=== PATIENT | male | born 1930 | race Caucasian/White ===

== ENCOUNTER 2016-09-22 14:43 | Emergency (ER) | payer MEDICARE, OTHER ==
--- NOTE | 2016-09-22 15:47 | ED ---
General Adult HPI - General Chief complaint: Urogenital Stated complaint: Blood in Urine Time Seen by Provider: 09/22/16 15:34 Source: patient, family, RN notes reviewed Mode of arrival: wheelchair Limitations: no limitations - History of Present Illness Initial comments: Patient is a pleasant 86-year-old male presenting to the emergency Department with hematuria. Onset was this morning. Patient has had 2 or 3 episodes. Minimal discomfort with urination however patient has a pressure type sensation. No back pain. No abdominal pain. No fevers. Patient did have similar symptoms around a month ago and diagnosed with urinary tract infection. Chart review reveals this was actually a few months ago. Patient did have follow-up with urology and prescribed Keflex last week. Concern for kidney infection. - Related Data Home Medications Medication Instructions Recorded Confirmed Esomeprazole Magnesium [NexIUM] 40 mg PO HS 07/25/15 09/22/16 Insulin Glargine,Hum.rec.anlog 25 unit SQ HS 07/25/15 09/22/16 [Lantus Solostar] Aspirin EC [Ecotrin Low Dose] 81 mg PO DAILY 06/24/16 09/22/16 Carvedilol [Coreg] 6.25 mg PO DAILY 06/24/16 09/22/16 Magnesium Oxide [Mag-Ox] 250 mg PO DAILY 06/24/16 09/22/16 Ferrous Sulfate [Feosol] 325 mg PO DAILY 07/22/16 09/22/16 Tamsulosin HCl [Flomax] 0.4 mg PO DAILY 07/22/16 09/22/16 Cephalexin [Keflex] 500 mg PO TID 09/22/16 09/22/16 Previous Rx's Medication Instructions Recorded Clopidogrel [Plavix] 75 mg PO DAILY #30 tab 01/13/16 Nitroglycerin Sl Tabs [Nitrostat] 0.4 mg SUBLINGUAL Q5M PRN #0 tab 01/13/16 Ciprofloxacin HCl [Cipro] 500 mg PO Q12HR #20 tablet 09/22/16 Allergies Allergy/AdvReac Type Severity Reaction Status Date / Time codeine AdvReac Severe Nausea & Verified 09/22/16 16:18 Vomiting Jjxmymd-[id number]-Gya Reductase AdvReac Severe Chest Pain Verified 09/22/16 16:18 Inhibitor Review of Systems ROS Statement: Those systems with pertinent positive or pertinent negative responses have been documented in the HPI. ROS Other: All systems not noted in ROS Statement are negative. Constitutional: Denies: fever Eyes: Denies: eye pain ENT: Denies: ear pain Respiratory: Denies: cough Cardiovascular: Denies: chest pain Endocrine: Denies: fatigue Gastrointestinal: Denies: abdominal pain, nausea, vomiting Genitourinary: Reports: urgency, dysuria (Mild), hematuria Musculoskeletal: Denies: back pain Skin: Denies: rash Neurological: Denies: weakness Past Medical History Past Medical History: Atrial Fibrillation, Coronary Artery Disease (CAD), Cancer , Chest Pain / Angina, Diabetes Mellitus, GI Bleed, Hypertension, Osteoarthritis (OA) Additional Past Medical History / Comment(s): past gi bleed r/t coumadin, gout( once), skin cancer History of Any Multi-Drug Resistant Organisms: None Reported Past Surgical History: Appendectomy, Cardiac Valve Replacement, Coronary Bypass/ CABG, Hernia Repair Additional Past Surgical History / Comment(s): cabg (5 vessle 18 years ago) and valve replacement 2 years ago, cataracts, laser sx rt eye(had some bleeding behind eye). Past Anesthesia/Blood Transfusion Reactions: No Reported Reaction Past Psychological History: No Psychological Hx Reported Additional Psychological History / Comment(s): pt lives at home with his ( he is care provider for his ) family lives next door and helps out. pt is independant. 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 Smoking Status: Former smoker Past Alcohol Use History: None Reported Additional Past Alcohol Use History / Comment(s): quit smoking 40 years ago and enjoys an occ glass of wine. Past Drug Use History: None Reported - Past Family History Mother Family Medical History: Dementia Father Additional Family Medical History / Comment(s): from train accident. many of pts aunts and uncles lived into [address] [place] General Exam Limitations: no limitations General appearance: alert, in no apparent distress Head exam: Present: atraumatic Eye exam: Present: normal appearance ENT exam: Present: normal oropharynx Neck exam: Present: normal inspection Respiratory exam: Present: normal lung sounds bilaterally Cardiovascular Exam: Present: regular rate, normal rhythm, systolic murmur GI/Abdominal exam: Present: soft. Absent: distended, tenderness, guarding, rebound, rigid, pulsatile mass Extremities exam: Present: normal inspection Back exam: Present: normal inspection. Absent: tenderness, CVA tenderness (R), CVA tenderness (L) Neurological exam: Present: alert Psychiatric exam: Present: normal affect, normal mood Skin exam: Absent: rash Course Vital Signs 09/22/16 14:52 Temperature 98.0 F Pulse Rate 58 L Respiratory 20 Rate Blood Pressure 199/79 O2 Sat by Pulse 99 Oximetry Medical Decision Making - Medical Decision Making Patient reevaluated and resting comfortably in bed. Patient has urinated with improvement of hematuria. Patient updated on results and need for follow-up. Antibiotics will be changed for possible urinary tract infection. - Lab Data Result diagrams: 09/22/16 16:24 09/22/16 16:24 Lab Results 09/22/16 09/22/16 09/22/16 Range/Units 15:47 16:24 16:24 WBC 6.0 (3.8-10.6) k/uL RBC 3.46 L (4.30-5.90) m/uL Hgb 11.0 L (13.0-17.5) gm/dL Hct 32.1 L (39.0-53.0) % MCV 92.8 (80.0-100.0) fL MCH 31.8 (25.0-35.0) pg MCHC 34.3 (31.0-37.0) g/dL RDW 13.6 (11.5-15.5) % Plt Count 195 (150-450) k/uL Neutrophils % 68 % Lymphocytes % 19 % Monocytes % 8 % Eosinophils % 2 % Basophils % 1 % Neutrophils # 4.1 (1.3-7.7) k/uL Lymphocytes # 1.2 (1.0-4.8) k/uL Monocytes # 0.5 (0-1.0) k/uL Eosinophils # 0.1 (0-0.7) k/uL Basophils # 0.1 (0-0.2) k/uL PT (9.0-12.0) sec INR (<1.1) APTT (22.0-30.0) sec Sodium 136 L (137-145) mmol/L Potassium 4.4 (3.5-5.1) mmol/L Chloride 98 (98-107) mmol/L Carbon Dioxide 28 (22-30) mmol/L Anion Gap 10 mmol/L BUN 18 (9-20) mg/dL Creatinine 1.31 H (0.66-1.25) mg/dL Est GFR (MDRD) Af Amer >60 (>60 ml/min/1.73 sqM) Est GFR (MDRD) Non-Af 52 (>60 ml/min/1.73 sqM) Glucose 156 H (74-99) mg/dL Calcium 8.8 (8.4-10.2) mg/dL Total Bilirubin 0.6 (0.2-1.3) mg/dL AST 21 (17-59) U/L ALT 25 (21-72) U/L Alkaline Phosphatase 55 (38-126) U/L Total Protein 7.5 (6.3-8.2) g/dL Albumin 4.2 (3.5-5.0) g/dL Urine Color Light Red Urine Appearance Clear (Clear) Urine pH 7.0 (5.0-8.0) Ur Specific [place] 1.009 (1.001-1.035) Urine Protein 1+ H (Negative) Urine Glucose (UA) Negative (Negative) Urine Ketones Negative (Negative) Urine Blood Large H (Negative) Urine Nitrate Negative (Negative) Urine Bilirubin Negative (Negative) Urine Urobilinogen <2.0 (<2.0) mg/dL Ur Leukocyte Esterase Negative (Negative) Urine RBC >182 H (0-5) /hpf 09/22/16 Range/Units 16:24 WBC (3.8-10.6) k/uL RBC (4.30-5.90) m/uL Hgb (13.0-17.5) gm/dL Hct (39.0-53.0) % MCV (80.0-100.0) fL MCH (25.0-35.0) pg MCHC (31.0-37.0) g/dL RDW (11.5-15.5) % Plt Count (150-450) k/uL Neutrophils % % Lymphocytes % % Monocytes % % Eosinophils % % Basophils % % Neutrophils # (1.3-7.7) k/uL Lymphocytes # (1.0-4.8) k/uL Monocytes # (0-1.0) k/uL Eosinophils # (0-0.7) k/uL Basophils # (0-0.2) k/uL PT 10.6 (9.0-12.0) sec INR 1.1 (<1.1) APTT 23.8 (22.0-30.0) sec Sodium (137-145) mmol/L Potassium (3.5-5.1) mmol/L Chloride (98-107) mmol/L Carbon Dioxide (22-30) mmol/L Anion Gap mmol/L BUN (9-20) mg/dL Creatinine (0.66-1.25) mg/dL Est GFR (MDRD) Af Amer (>60 ml/min/1.73 sqM) Est GFR (MDRD) Non-Af (>60 ml/min/1.73 sqM) Glucose (74-99) mg/dL Calcium (8.4-10.2) mg/dL Total Bilirubin (0.2-1.3) mg/dL AST (17-59) U/L ALT (21-72) U/L Alkaline Phosphatase (38-126) U/L Total Protein (6.3-8.2) g/dL Albumin (3.5-5.0) g/dL Urine Color Urine Appearance (Clear) Urine pH (5.0-8.0) Ur Specific [place] (1.001-1.035) Urine Protein (Negative) Urine Glucose (UA) (Negative) Urine Ketones (Negative) Urine Blood (Negative) Urine Nitrate (Negative) Urine Bilirubin (Negative) Urine Urobilinogen (<2.0) mg/dL Ur Leukocyte Esterase (Negative) Urine RBC (0-5) /hpf - Radiology Data Radiology results: report reviewed (Computed tomography scan of abdomen pelvis shows no acute process), image reviewed (KUB shows no acute process) Disposition Clinical Impression: Hematuria Disposition: HOME SELF-CARE Condition: Stable Instructions: Hematuria (ED) Additional Instructions: Please follow-up with your urologist this week. Also primary care physician. Return for pain, fevers, weakness, worsening symptoms or other concerns. Prescriptions: Ciprofloxacin HCl [Cipro] 500 mg PO Q12HR #20 tablet Referrals: Daniele Banks MD [Primary Care Provider] - 1-2 days Cruz Hunter MD [STAFF PHYSICIAN] - 1-2 days
--- NOTE | 2016-09-22 16:01 | XR ---
EXAMINATION TYPE: XR KUB portable DATE OF EXAM: 09/22/2016 3:56 PM COMPARISON: NONE HISTORY: Abdominal pain and hematuria TECHNIQUE: 1 views submitted FINDINGS: Extensive vascular calcifications are noted. Calcifications in pelvis are nonspecific. No s uspicious calcifications are seen overlying the kidneys. There is extensive retained fecal debris whi ch limits its evaluation. Bowel gas pattern nonspecific with no diagnostic evidence of obstruction. IMPRESSION: 1. Nonspecific abdomen. No definite suspicious calcifications. If warranted clinically consider CT sc an.
[2016-09-22 16:08] LABS: Appearance,Urine Clear (Clear); Bilirubin,Urine Negative (Negative); Glucose,Urine (UA) Negative (Negative); Ketones,Urine Negative (Negative); Leukocyte Esterase,Urine Negative (Negative); Nitrite,Urine Negative (Negative); Particle Count 3261; Protein,Urine 1+ (Negative); RBC,Urine >182 /hpf (0-5); Specific Gravity,Urine 1.009 (1.001-1.035); UA Billing (MACRO vs. MICRO) MICRO; Urobilinogen,Urine <2.0 mg/dL (<2.0)
[2016-09-22 16:33] LABS: Basophils # (A) 0.1 k/uL (0-0.2); Basophils % (A) 1 %; CH 32.1; CHCM 34.8; Eosinophils # (A) 0.1 k/uL (0-0.7); Eosinophils % (A) 2 %; HCT 32.1 % (39.0-53.0); HDW 2.45; Luc # (Auto) 0.15; Luc % (Auto) 3; Lymphocytes # (A) 1.2 k/uL (1.0-4.8); Lymphocytes % (A) 19 %; MCH 31.8 pg (25.0-35.0); MCHC 34.3 g/dL (31.0-37.0); MCV 92.8 fL (80.0-100.0); Mean Platelet Volume 8.1; Monocytes # (A) 0.5 k/uL (0-1.0); Monocytes % (A) 8 %; Neutrophils # (A) 4.1 k/uL (1.3-7.7); Neutrophils % (A) 68 %; RBC 3.46 m/uL (4.30-5.90); RDW 13.6 % (11.5-15.5); WBC (Perox) 6.48
[2016-09-22 16:43] LABS: ALT 25 U/L (21-72); AST 21 U/L (17-59); Alkaline Phosphatase 55 U/L (38-126); Anion Gap 10 mmol/L; Blood Urea Nitrogen 18 mg/dL (9-20); Calcium 8.8 mg/dL (8.4-10.2); Carbon Dioxide 28 mmol/L (22-30); Chloride 98 mmol/L (98-107); Glucose 156 mg/dL (74-99); Non-African American GFR(MDRD) 52 (>60 ml/min/1.73 sqM); Potassium 4.4 mmol/L (3.5-5.1); Sodium 136 mmol/L (137-145); Total Bilirubin 0.6 mg/dL (0.2-1.3); Total Protein 7.5 g/dL (6.3-8.2)
[2016-09-22 16:48] LABS: INR 1.1 (<1.1); Partial Thromboplastin Time 23.8 sec (22.0-30.0); Prothrombin Time 10.6 sec (9.0-12.0)
--- NOTE | 2016-09-22 18:53 | CT ---
EXAMINATION TYPE: CT abdomen pelvis wo con DATE OF EXAM: 09/22/2016 6:32 PM COMPARISON: 06/24/2016 HISTORY: Pt states of hematuria. CT DLP: 417.5 mGycm Automated exposure control for dose reduction was used. TECHNIQUE: Helical acquisition of images was performed from the lung bases through the pelvis. FINDINGS: Lung bases are clear of consolidation. There is no pleural effusion. There is a hiatal hernia. Liver shows no focal defect. Gallbladder appears normal. Bile ducts are not dilated. There is no sign of a pancreatic mass. Spleen appears normal. There is atherosclerotic vascular calcification. There is no adrenal mass. Kidneys have normal size and contour. There is no hydronephrosis. Ureters are not dilated. There is no retroperitoneal adenopathy. There is no ascites. Bladder distends smoothly. The re is no free fluid in the pelvis. There is retained fecal material throughout the colon. Appendix is not seen. There is no sign of appendicitis. I see no bony destructive process. There is 15% depressi on of the superior endplate of L1 vertebra that is is old. IMPRESSION: ATHEROSCLEROTIC VASCULAR DISEASE. NO SIGN OF ACUTE ABDOMEN AND PELVIS. CONSTIPATION. NO ADVERSE PHILLIPS E COMPARED TO OLD EXAM. STABLE 2 CM DENSITY IN THE RIGHT INGUINAL REGION IS PROBABLY AN ENLARGED LYMP H NODE.
[2016-09-22 19:34] VITALS: BP 150/86; PULSE 60; RESP 16; TEMP 97.3
== END 2016-09-22 19:33 | disposition home or self-care (01) ==
LOC: EC 14:43
DX: R31.9 Hematuria, unspecified (principal); R30.0 Dysuria; I48.91 Unspecified atrial fibrillation; I25.10 Atherosclerotic heart disease of native coronary artery without angina pectoris; E11.9 Type 2 diabetes mellitus without complications; I10 Essential (primary) hypertension; M19.90 Unspecified osteoarthritis, unspecified site; Z95.2 Presence of prosthetic heart valve; Z87.891 Personal history of nicotine dependence; Z95.1 Presence of aortocoronary bypass graft; Z87.440 Personal history of urinary (tract) infections; Z79.4 Long term (current) use of insulin; Z79.899 Other long term (current) drug therapy; Z79.82 Long term (current) use of aspirin; Z79.02 Long term (current) use of antithrombotics/antiplatelets; Z88.8 Allergy status to other drugs, medicaments and biological substances; Z88.5 Allergy status to narcotic agent
CPT/HCPCS: 36415; 51798; 74000; 74176; 80053; 81001; 85025; 85610; 85730; 87086; 99284

== ENCOUNTER 2017-05-15 08:09 | Emergency (ER) | payer MEDICARE, OTHER ==
[2017-05-15] MEDS ORDERED: SODIUM CHLORIDE 0.9% 500 ML IV STA (08:31)
[2017-05-15 08:51] LABS: Basophils # (A) 0.1 k/uL (0-0.2); Basophils % (A) 1 %; CH 32.7; CHCM 34.4; Eosinophils # (A) 0.2 k/uL (0-0.7); Eosinophils % (A) 3 %; HDW 2.49; HGB 11.7 gm/dL (13.0-17.5); Luc % (Auto) 2; Lymphocytes % (A) 17 %; MCH 31.9 pg (25.0-35.0); MCHC 33.5 g/dL (31.0-37.0); MCV 95.4 fL (80.0-100.0); Mean Platelet Volume 7.8; Monocytes # (A) 0.6 k/uL (0-1.0); Monocytes % (A) 10 %; Neutrophils # (A) 3.9 k/uL (1.3-7.7); Neutrophils % (A) 67 %; RBC 3.67 m/uL (4.30-5.90); RDW 12.7 % (11.5-15.5); WBC 5.8 k/uL (3.8-10.6); WBC (Perox) 5.79
--- NOTE | 2017-05-15 08:57 | XR ---
EXAMINATION TYPE: XR chest 2V DATE OF EXAM: 05/15/2017 HISTORY: dysrhythmia. REFERENCE: Previous study dated 07/22/2016. FINDINGS: There has been a midline sternotomy. There is some platelike atelectasis at the left lung b ase. The lungs are otherwise clear. Heart size is upper limits of normal. Pleural spaces are clear. T here is hypertrophic spondylosis in the dorsal spine. IMPRESSION: 1. BORDERLINE CARDIOMEGALY. 2. PLATELIKE ATELECTASIS, LEFT LUNG BASE.
[2017-05-15 08:59] LABS: INR 1.1 (<1.2); Prothrombin Time 11.1 sec (9.0-12.0)
[2017-05-15 09:00] LABS: ALT 27 U/L (21-72); AST 21 U/L (17-59); Alkaline Phosphatase 56 U/L (38-126); Anion Gap 10 mmol/L; Blood Urea Nitrogen 17 mg/dL (9-20); Calcium 8.7 mg/dL (8.4-10.2); Carbon Dioxide 24 mmol/L (22-30); Chloride 103 mmol/L (98-107); Glucose 64 mg/dL (74-99); Non-African American GFR(MDRD) 55 (>60 ml/min/1.73 sqM); Potassium 4.5 mmol/L (3.5-5.1); Sodium 137 mmol/L (137-145); Total Bilirubin 0.5 mg/dL (0.2-1.3); Total Protein 6.9 g/dL (6.3-8.2)
--- NOTE | 2017-05-15 09:04 | ED ---
General Adult HPI - General Chief complaint: Weakness Stated complaint: weakness Time Seen by Provider: 05/15/17 08:15 Source: patient, RN notes reviewed Mode of arrival: wheelchair Limitations: no limitations - History of Present Illness Initial comments: This is an 86-year-old male who presents emergency department with past medical history significant for atrial fibrillation. Patient states she woke up this morning felt his heart racing felt a little bit weak mildly short of breath. Patient states he takes medicines went back to bed when he got up he no longer had any the racing heart thought he might be slightly weak but he wanted to come in to get checked out. Patient at no time had any chest pain. Patient states currently he feels back to his baseline. Patient states he has not had any recent fever chills or cough. Patient denies any abdominal pain patient denies nausea vomiting diarrhea. Patient denies any diaphoretic episodes. Patient denies headache patient denies numbness weakness. Patient denies any leg swelling or calf pain. Patient denies being lightheaded or dizzy. - Related Data Home Medications Medication Instructions Recorded Confirmed Esomeprazole Magnesium [NexIUM] 40 mg PO HS 07/25/15 09/22/16 Insulin Glargine,Hum.rec.anlog 25 unit SQ HS 07/25/15 09/22/16 [Lantus Solostar] Aspirin EC [Ecotrin Low Dose] 81 mg PO DAILY 06/24/16 09/22/16 Carvedilol [Coreg] 6.25 mg PO DAILY 06/24/16 09/22/16 Magnesium Oxide [Mag-Ox] 250 mg PO DAILY 06/24/16 09/22/16 Ferrous Sulfate [Feosol] 325 mg PO DAILY 07/22/16 09/22/16 Tamsulosin HCl [Flomax] 0.4 mg PO DAILY 07/22/16 09/22/16 Cephalexin [Keflex] 500 mg PO TID 09/22/16 09/22/16 Previous Rx's Medication Instructions Recorded Clopidogrel [Plavix] 75 mg PO DAILY #30 tab 01/13/16 Nitroglycerin Sl Tabs [Nitrostat] 0.4 mg SUBLINGUAL Q5M PRN #0 tab 01/13/16 Ciprofloxacin HCl [Cipro] 500 mg PO Q12HR #20 tablet 09/22/16 Allergies Allergy/AdvReac Type Severity Reaction Status Date / Time codeine AdvReac Severe Nausea & Verified 05/15/17 08:15 Vomiting Bxkujqi-Zsj-Bzg Reductase AdvReac Severe Chest Pain Verified 05/15/17 08:15 Inhibitor Review of Systems ROS Statement: Those systems with pertinent positive or pertinent negative responses have been documented in the HPI. ROS Other: All systems not noted in ROS Statement are negative. Past Medical History Past Medical History: Atrial Fibrillation, Coronary Artery Disease (CAD), Cancer , Chest Pain / Angina, Diabetes Mellitus, GI Bleed, Hypertension, Osteoarthritis (OA) Additional Past Medical History / Comment(s): past gi bleed r/t coumadin, gout( once), skin cancer History of Any Multi-Drug Resistant Organisms: None Reported Past Surgical History: Appendectomy, Cardiac Valve Replacement, Coronary Bypass/ CABG, Hernia Repair Additional Past Surgical History / Comment(s): cabg (5 vessle 18 years ago) and valve replacement 2 years ago, cataracts, laser sx rt eye(had some bleeding behind eye). Past Anesthesia/Blood Transfusion Reactions: No Reported Reaction Past Psychological History: No Psychological Hx Reported Smoking Status: Former smoker Past Alcohol Use History: None Reported Past Drug Use History: None Reported - Past Family History Mother Family Medical History: Dementia Father Additional Family Medical History / Comment(s): from train accident. many of pts aunts and uncles lived into [address] [facility] General Exam - General Exam Comments Initial Comments: GENERAL: Patient is well-developed and well-nourished. Patient is nontoxic and well- hydrated and is in no acute distress. ENT: Neck is soft and supple. No significant lymphadenopathy is noted. Oropharynx is clear. Moist mucous membranes. Neck has full range of motion without eliciting any pain. EYES: The sclera were anicteric and conjunctiva were pink and moist. Extraocular movements were intact and pupils were equal round and reactive to light. Eyelids were unremarkable. PULMONARY: Unlabored respirations. Good breath sounds bilaterally. No audible rales rhonchi or wheezing was noted. CARDIOVASCULAR: Irregular heartbeat ABDOMEN: Soft and nontender with normal bowel sounds. No palpable organomegaly was noted. There is no palpable pulsatile mass. SKIN: Skin is clear with no lesions or rashes and otherwise unremarkable. NEUROLOGIC: Patient is alert and oriented x3. Cranial nerves II through XII are grossly intact. Motor and sensory are also intact. Normal speech, volume and content. Symmetrical smile. MUSCULOSKELETAL: Normal extremities with adequate strength and full range of motion. No lower extremity swelling or edema. No calf tenderness. LYMPHATICS: No significant lymphadenopathy is noted PSYCHIATRIC: Normal psychiatric evaluation. Normal interpersonal interactions appears functionally intact in deals appropriately with others. No signs of depression. No signs of anxiety. 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 Patient's EKG shows no ST segment elevation or depression. I compared this EKG to an old EKG there are no acute changes noted. Chest x-ray shows no acute abnormality. I went back in the room to reevaluate the patient and patient states he was asymptomatic and wanted to be discharged home to go home and take care of his . Patient agreed to follow up with cardiology. - Lab Data Result diagrams: 05/15/17 08:34 05/15/17 08:34 Lab Results 05/15/17 05/15/17 05/15/17 Range/Units 08:34 08:34 08:34 WBC 5.8 (3.8-10.6) k/uL RBC 3.67 L (4.30-5.90) m/uL Hgb 11.7 L (13.0-17.5) gm/dL Hct 35.0 L (39.0-53.0) % MCV 95.4 (80.0-100.0) fL MCH 31.9 (25.0-35.0) pg MCHC 33.5 (31.0-37.0) g/dL RDW 12.7 (11.5-15.5) % Plt Count 210 (150-450) k/uL Neutrophils % 67 % Lymphocytes % 17 % Monocytes % 10 % Eosinophils % 3 % Basophils % 1 % Neutrophils # 3.9 (1.3-7.7) k/uL Lymphocytes # 1.0 (1.0-4.8) k/uL Monocytes # 0.6 (0-1.0) k/uL Eosinophils # 0.2 (0-0.7) k/uL Basophils # 0.1 (0-0.2) k/uL PT (9.0-12.0) sec INR (<1.2) APTT (22.0-30.0) sec Sodium 137 (137-145) mmol/L Potassium 4.5 (3.5-5.1) mmol/L Chloride 103 (98-107) mmol/L Carbon Dioxide 24 (22-30) mmol/L Anion Gap 10 mmol/L BUN 17 (9-20) mg/dL Creatinine 1.25 (0.66-1.25) mg/dL Est GFR (MDRD) Af Amer >60 (>60 ml/min/1.73 sqM) Est GFR (MDRD) Non-Af 55 (>60 ml/min/1.73 sqM) Glucose 64 L (74-99) mg/dL Calcium 8.7 (8.4-10.2) mg/dL Magnesium 2.0 (1.6-2.3) mg/dL Total Bilirubin 0.5 (0.2-1.3) mg/dL AST 21 (17-59) U/L ALT 27 (21-72) U/L Alkaline Phosphatase 56 (38-126) U/L Total Creatine Kinase 149 (55-170) U/L CK-MB (CK-2) 1.8 (0.0-2.4) ng/mL CK-MB (CK-2) Rel Index 1.2 Troponin I <0.012 (0.000-0.034) ng/mL Total Protein 6.9 (6.3-8.2) g/dL Albumin 3.9 (3.5-5.0) g/dL 05/15/17 Range/Units 08:34 WBC (3.8-10.6) k/uL RBC (4.30-5.90) m/uL Hgb (13.0-17.5) gm/dL Hct (39.0-53.0) % MCV (80.0-100.0) fL MCH (25.0-35.0) pg MCHC (31.0-37.0) g/dL RDW (11.5-15.5) % Plt Count (150-450) k/uL Neutrophils % % Lymphocytes % % Monocytes % % Eosinophils % % Basophils % % Neutrophils # (1.3-7.7) k/uL Lymphocytes # (1.0-4.8) k/uL Monocytes # (0-1.0) k/uL Eosinophils # (0-0.7) k/uL Basophils # (0-0.2) k/uL PT 11.1 (9.0-12.0) sec INR 1.1 (<1.2) APTT 24.0 (22.0-30.0) sec Sodium (137-145) mmol/L Potassium (3.5-5.1) mmol/L Chloride (98-107) mmol/L Carbon Dioxide (22-30) mmol/L Anion Gap mmol/L BUN (9-20) mg/dL Creatinine (0.66-1.25) mg/dL Est GFR (MDRD) Af Amer (>60 ml/min/1.73 sqM) Est GFR (MDRD) Non-Af (>60 ml/min/1.73 sqM) Glucose (74-99) mg/dL Calcium (8.4-10.2) mg/dL Magnesium (1.6-2.3) mg/dL Total Bilirubin (0.2-1.3) mg/dL AST (17-59) U/L ALT (21-72) U/L Alkaline Phosphatase (38-126) U/L Total Creatine Kinase (55-170) U/L CK-MB (CK-2) (0.0-2.4) ng/mL CK-MB (CK-2) Rel Index Troponin I (0.000-0.034) ng/mL Total Protein (6.3-8.2) g/dL Albumin (3.5-5.0) g/dL Disposition Clinical Impression: Palpitations, History of atrial fibrillation Disposition: HOME SELF-CARE Instructions: Palpitations (ED) Additional Instructions: Patient should follow up with cardiology or Dr. Banks Referrals: Daniele Banks MD [Primary Care Provider] - 1-2 days Time of Disposition: 09:36
[2017-05-15 09:13] LABS: Creatine Kinase 149 U/L (55-170)
[2017-05-15 09:19] VITALS: RESP 18
[2017-05-15 09:25] LABS: Creatine Kinase MB 1.8 ng/mL (0.0-2.4); Troponin I <0.012 ng/mL (0.000-0.034)
[2017-05-15 10:19] VITALS: BP 170/78; PULSE 59; TEMP 98.2
== END 2017-05-15 10:19 | disposition home or self-care (01) ==
LOC: EC 08:09
DX: R00.2 Palpitations (principal); I48.91 Unspecified atrial fibrillation; I25.10 Atherosclerotic heart disease of native coronary artery without angina pectoris; E11.9 Type 2 diabetes mellitus without complications; I10 Essential (primary) hypertension; M19.90 Unspecified osteoarthritis, unspecified site; Z87.891 Personal history of nicotine dependence; Z85.828 Personal history of other malignant neoplasm of skin; Z95.1 Presence of aortocoronary bypass graft; Z88.5 Allergy status to narcotic agent; Z88.8 Allergy status to other drugs, medicaments and biological substances; Z79.4 Long term (current) use of insulin; Z79.899 Other long term (current) drug therapy
CPT/HCPCS: 36415; 71020; 80053; 82550; 82553; 83735; 84484; 85025; 85610; 85730; 93005; 99285

== ENCOUNTER 2017-10-19 12:06 | Emergency (ER) | payer MEDICARE, OTHER ==
[2017-10-19 12:13] VITALS: TEMP 97.4
[2017-10-19] MEDS ORDERED: NITROGLYCERIN OINT 1 INCH/GM PACKET TOPICAL STA (12:47)
[2017-10-19] MEDS ORDERED: ASPIRIN 81 MG PO STA (12:47)
[2017-10-19] MEDS ORDERED: SODIUM CHLORIDE 0.9% 1,000 ML IV STA (12:47)
[2017-10-19] MEDS ORDERED: LABETALOL 5 MG/ML VIAL MDV IVP STA ×2 (12:49→15:23)
[2017-10-19 13:11] LABS: Basophils % (A) 1 %; Eosinophils # (A) 0.1 k/uL (0-0.7); Eosinophils % (A) 2 %; HGB 10.8 gm/dL (13.0-17.5); Lymphocytes # (A) 1.2 k/uL (1.0-4.8); Lymphocytes % (A) 18 %; MCH 30.9 pg (25.0-35.0); MCHC 32.9 g/dL (31.0-37.0); Mean Platelet Volume 8.1; Monocytes # (A) 0.4 k/uL (0-1.0); Monocytes % (A) 6 %; Neutrophils # (A) 4.7 k/uL (1.3-7.7); Neutrophils % (A) 72 %; Platelet Count 189 k/uL (150-450); RBC 3.51 m/uL (4.30-5.90); RDW 13.2 % (11.5-15.5); WBC 6.6 k/uL (3.8-10.6)
--- NOTE | 2017-10-19 13:24 | XR ---
EXAMINATION TYPE: XR chest 2V DATE OF EXAM: 10/19/2017 COMPARISON: 05/15/2017 HISTORY: Shortness of breath TECHNIQUE: Frontal and lateral views of the chest are obtained. FINDINGS: Scattered senescent parenchymal changes noted. Hyperinflation compatible with COPD. No evidence for infiltrate. No evidence for atelectasis. Heart size is stable. Mediastinal structures are stable and grossly unremarkable. No evidence for hilar prominence. Degenerative changes dorsal spine. IMPRESSION: 1. No evidence for acute pulmonary disease.
[2017-10-19 13:28] LABS: Albumin 3.9 g/dL (3.5-5.0); Calcium 8.7 mg/dL (8.4-10.2); Magnesium 2.1 mg/dL (1.6-2.3); Potassium 5.1 mmol/L (3.5-5.1); Total Bilirubin 0.4 mg/dL (0.2-1.3); Total Protein 6.6 g/dL (6.3-8.2)
[2017-10-19 13:35] LABS: INR 1.1 (<1.2); Partial Thromboplastin Time 23.4 sec (22.0-30.0); Prothrombin Time 10.4 sec (9.0-12.0)
[2017-10-19 13:40] LABS: D-Dimer 0.5 mg/L FEU (<0.60)
[2017-10-19 13:45] LABS: Creatine Kinase 167 U/L (55-170)
[2017-10-19 13:57] LABS: Creatine Kinase MB 2.3 ng/mL (0.0-2.4); Troponin I <0.012 ng/mL (0.000-0.034)
[2017-10-19 16:19] VITALS: BP 163/68; PULSE 59; RESP 18
--- NOTE | 2017-10-19 16:55 | ED ---
Chest Pain HPI - General Chief Complaint: Chest Pain Stated Complaint: Chest Pain Time Seen by Provider: 10/19/17 12:33 Source: patient Mode of arrival: wheelchair Limitations: no limitations - History of Present Illness Initial Comments: 7 years old male came in with the chest pain and numb her blood pressure blood pressure been high for 24 hours he had a chest pain off and on for about a month now he takes nitro chest pain gets really it is very active, he has a history of atrial fibrillation coronary artery disease diabetes GI bleed his blood pressure was quite high when he came in today is over 200 systolic we gave him some labetalol and it settled down. He denies any headache no neck pain he has a chest pain for about a month now and it gets worse with deep breaths no abdominal pain no frequency urgency dysuria no symptoms of TIA or CVA - Related Data Home Medications Medication Instructions Recorded Confirmed Insulin Glargine,Hum.rec.anlog 15 - 25 unit SQ HS 07/25/15 10/19/17 [Lantus Solostar] Aspirin EC [Ecotrin Low Dose] 81 mg PO BID 06/24/16 10/19/17 Carvedilol [Coreg] 6.25 mg PO DAILY 06/24/16 10/19/17 Magnesium Oxide [Mag-Ox] 250 mg PO HS 06/24/16 10/19/17 Ferrous Sulfate [Feosol] 325 mg PO HS 07/22/16 10/19/17 Tamsulosin HCl [Flomax] 0.4 mg PO HS 07/22/16 10/19/17 Previous Rx's Medication Instructions Recorded Clopidogrel [Plavix] 75 mg PO DAILY #30 tab 01/13/16 Nitroglycerin Sl Tabs [Nitrostat] 0.4 mg SUBLINGUAL Q5M PRN #0 tab 01/13/16 Carvedilol [Coreg] 12.5 mg PO BID #30 tablet 10/19/17 Allergies Allergy/AdvReac Type Severity Reaction Status Date / Time codeine AdvReac Severe Nausea & Verified 10/19/17 13:02 Vomiting Omuugfh-Hlt-Bsm Reductase AdvReac Severe Chest Pain Verified 10/19/17 13:02 Inhibitor Review of Systems ROS Statement: Those systems with pertinent positive or pertinent negative responses have been documented in the HPI. ROS Other: All systems not noted in ROS Statement are negative. EKG Findings - EKG Comments: EKG Findings:: EKG is undetermined rhythm medical rate is 55 MA interval, QRS duration is 90 QT/QTc is 448/428 review of this EKG reveals some T-wave inversion in lead aVL, no ST elevation or ST depression noticed any other leads Past Medical History Past Medical History: Atrial Fibrillation, Coronary Artery Disease (CAD), Cancer , Chest Pain / Angina, Diabetes Mellitus, GI Bleed, Hypertension, Osteoarthritis (OA) Additional Past Medical History / Comment(s): past gi bleed r/t coumadin, gout( once), skin cancer History of Any Multi-Drug Resistant Organisms: None Reported Past Surgical History: Appendectomy, Cardiac Valve Replacement, Coronary Bypass/ CABG, Hernia Repair Additional Past Surgical History / Comment(s): cabg (5 vessle 18 years ago) and valve replacement 2 years ago, cataracts, laser sx rt eye(had some bleeding behind eye). Past Anesthesia/Blood Transfusion Reactions: No Reported Reaction Past Psychological History: No Psychological Hx Reported Smoking Status: Former smoker Past Alcohol Use History: None Reported Past Drug Use History: None Reported - Past Family History Mother Family Medical History: Dementia Father Additional Family Medical History / Comment(s): from train accident. many of pts aunts and uncles lived into [address] from [facility] General Exam - General Exam Comments Initial Comments: General: The patient is awake and alert, in no distress, and does not appear acutely ill. Skin: Skin is warm and dry and no rashes or lesions are noted. Eye: Pupils are equal, round and reactive to light, extra-ocular movements are intact; there is normal conjunctiva bilaterally. Ears, nose, mouth and throat: There are moist mucous membranes and no oral lesions. Neck: The neck is supple, there is no tenderness or JVD. Cardiovascular: There is a regular rate and rhythm. No murmur, rub or gallop is appreciated. Respiratory: To auscultation bilateral, no wheezing no rhonchi no distress respiratory monsivais noticed Gastrointestinal: Soft, non-distended, non-tender abdomen without masses or organomegaly noted. There is no rebound or guarding present. Bowel sounds are unremarkable. Back: There is no tenderness to palpation in the midline. There is no obvious deformity. Musculoskeletal: Normal ROM, no tenderness, There is no pedal edema. There is no calf tenderness or swelling. No cords were appreciated. Neurological: CN II-XII intact, Cranial nerves III through XII are intact. There are no obvious motor or sensory deficits. Coordination appears grossly intact. Speech is normal. Psychiatric: Cooperative, appropriate mood & affect, normal judgment. Limitations: no limitations Course Vital Signs 10/19/17 10/19/17 10/19/17 12:09 13:43 14:48 Temperature 97.4 F L Pulse Rate 58 L 52 L 54 L Respiratory 18 18 20 Rate Blood Pressure 208/81 164/70 183/83 O2 Sat by Pulse 100 100 96 Oximetry 10/19/17 10/19/17 15:33 16:18 Temperature Pulse Rate 54 L 59 L Respiratory 16 18 Rate Blood Pressure 159/57 163/68 O2 Sat by Pulse 99 100 Oximetry Patient is reassessed at term 1650 minus tied up with a code for (1 patient for get an hour, CBC is unremarkable hemoglobin is 10.8 history his hemoglobin has been around 11 is normal troponin is 1.36 troponin is normal EKG did not show any STEMI chest x-rays unremarkable he did require labetalol 20 mg twice and now his blood pressure has been stable for over an hour now. Additionally to Dr. Darren Banks one seemed tomorrow morning he recommended that I doubled the dose of his his Coreg] discussed with the patient patient is To go home Critical Care Time Total Critical Care Time: 30 Critical Care Time: Watchedwatched blood pressure closely, labetalol 20 mg IV was done twice, investigations about the cardiopulmonary status was done, troponin is negative, d-dimer is negative, creatinine is slightly elevated 1.36 rest of the chemistries are within normal range chest x-rays unremarkable, according to Dr. Banks's instruction coags stenosis currently B10 is to follow with the Dr. Banks tomorrow morning Disposition Clinical Impression: Chest pain, Hypertension Disposition: HOME SELF-CARE Condition: Good Prescriptions: Carvedilol [Coreg] 12.5 mg PO BID #30 tablet Referrals: Daniele Banks MD [Primary Care Provider] - 1-2 days
== END 2017-10-19 17:21 | disposition home or self-care (01) ==
LOC: EC 12:06
DX: I10 Essential (primary) hypertension (principal); R07.9 Chest pain, unspecified; I48.91 Unspecified atrial fibrillation; I25.10 Atherosclerotic heart disease of native coronary artery without angina pectoris; E11.9 Type 2 diabetes mellitus without complications; Z85.828 Personal history of other malignant neoplasm of skin; Z95.2 Presence of prosthetic heart valve; Z95.1 Presence of aortocoronary bypass graft; Z87.891 Personal history of nicotine dependence; Z79.4 Long term (current) use of insulin; Z79.82 Long term (current) use of aspirin; Z79.02 Long term (current) use of antithrombotics/antiplatelets; Z79.899 Other long term (current) drug therapy; Z88.5 Allergy status to narcotic agent; Z88.8 Allergy status to other drugs, medicaments and biological substances
CPT/HCPCS: 36415; 71046; 80053; 82550; 82553; 83735; 84484; 85025; 85379; 85610; 85730; 93005; 96361; 96374; 96376; 99285

== ENCOUNTER 2018-01-21 06:23 | Day surgery (SDC) | payer MEDICARE, OTHER ==
[2018-01-18 10:32] VITALS: BMI 27.3
[~2018-01-21 06:23] MED LIST: LACTATED RINGERS 1,000 ML IV SCH; SODIUM CHLORIDE 0.9% 1,000 ML IV SCH
[2018-01-21 07:18] LABS: Glucose,Whole Blood 103 mg/dL (75-99)
[2018-01-21] MEDS ORDERED: PROPOFOL 10 MG/ML 20 ML VIAL IV ONE (07:35)
[2018-01-21] MEDS ORDERED: LIDOCAINE 1% INJ 10MG/ML (20 ML MDV) ONE (07:35)
[2018-01-21 07:43] LABS: Calcium 8.7 mg/dL (8.4-10.2); Potassium 4.7 mmol/L (3.5-5.1)
--- NOTE | 2018-01-21 08:01 | CE ---
CARDIAC ELECTROPHYSIOLOGY REPORT DATE OF SERVICE: 01/21/2018 PROCEDURE: Electrical cardioversion, INDICATION: Persistent atrial fibrillation. PERFORMED BY: Dr. Aylin Baird. CLINICAL INFORMATION: Mr. August Murphy is an 87-year-old gentleman with a history of persistent atrial fib, type 2 diabetes, hypertension, hyperlipidemia, CAD with a prior bypass surgery and also transapical TAVR procedure. Because of persistent atrial fibrillation, symptomatic and unresponsive to pharmacological efforts, he was advised electrical cardioversion and brought in for the procedure electively. Rate control was optimal and he was on Eliquis 2.5 mg b.i.d. PROCEDURE NOTE: Under the influence of ultra short-acting intravenous anesthetic agent with the attendance of the anesthesiologist, a single shock was delivered with anterior and posterior patches. Patient remained in atrial fib and had some junctional beats, bradycardic but did not convert to sinus rhythm. He was hemodynamically stable and neurologically intact. This was an unsuccessful electrical cardioversion. We will continue rate control and anticoagulation. This was discussed with the patient and his family. He will be discharged later on today and I will see him in the office next week. MMODL / IJN: [id number] /
[2018-01-21 08:04] VITALS: TEMP 98
[2018-01-21 08:11] VITALS: RESP 18
[2018-01-21 11:23] VITALS: BP 140/63; PULSE 52
== END 2018-01-21 11:00 | disposition home or self-care (01) ==
LOC: CATHCVL 06:23
PROVIDERS: ATTEND Internal Medicine Interventional Cardiology
DX: I48.1 Persistent atrial fibrillation (principal); R00.1 Bradycardia, unspecified; I25.10 Atherosclerotic heart disease of native coronary artery without angina pectoris; Z95.1 Presence of aortocoronary bypass graft; Z95.5 Presence of coronary angioplasty implant and graft; I35.0 Nonrheumatic aortic (valve) stenosis; Z95.2 Presence of prosthetic heart valve; E11.9 Type 2 diabetes mellitus without complications; E78.00 Pure hypercholesterolemia, unspecified; Z82.49 Family history of ischemic heart disease and other diseases of the circulatory system; Z79.01 Long term (current) use of anticoagulants; Z79.82 Long term (current) use of aspirin; Z79.899 Other long term (current) drug therapy; Z79.4 Long term (current) use of insulin; Z88.5 Allergy status to narcotic agent; Z87.891 Personal history of nicotine dependence
CPT/HCPCS: 92960; 80048; J2001; J2704

== ENCOUNTER 2018-07-03 06:17 | Observation (INO) | payer MEDICARE, OTHER ==
[2018-07-03] MEDS ORDERED: SODIUM CHLORIDE 0.9% 500 ML 500 ML IV ONE (06:40)
[2018-07-03] MEDS ORDERED: ONDANSETRON 4 MG/2 ML VIAL IVP STA (06:40)
--- NOTE | 2018-07-03 06:46 | ED ---
General Adult HPI - General Source: patient, EMS, RN notes reviewed, old records reviewed Mode of arrival: EMS Limitations: no limitations <Jhon Jeffery - Last Filed: 07/03/18 06:45> <Jhon Cohen - Last Filed: 07/03/18 11:39> - General Chief complaint: Fall Stated complaint: Syncope Time Seen by Provider: 07/03/18 06:19 - History of Present Illness Initial comments: 87-year-old male presents status post fall. Patient was getting up to go to the bathroom, fell in the hallway striking his head. He did break the drywall. No loss of consciousness. Patient is on anticoagulation with history of atrial fibrillation. Denied any preceding chest pain or palpitations. He states he had felt palpitations earlier in the day and felt like his heart was racing. Denies vomiting or diarrhea. He is complaining of nausea at the time my evaluation. No abdominal pain. No dysuria or hematuria. No fever or chills. No recent illnesses. Denies upper extremity pain. Denies hip pain or lower extremity pain. (Jhon Jeffery) - Related Data Home Medications Medication Instructions Recorded Confirmed Insulin Glargine,Hum.rec.anlog 25 unit SQ HS 07/25/15 01/21/18 [Lantus Solostar] Aspirin EC [Ecotrin Low Dose] 81 mg PO DAILY 06/24/16 01/21/18 Magnesium Oxide [Mag-Ox] 250 mg PO HS 06/24/16 01/21/18 Ferrous Sulfate [Feosol] 325 mg PO HS 07/22/16 01/21/18 Tamsulosin HCl [Flomax] 0.4 mg PO HS 07/22/16 01/21/18 Esomeprazole Magnesium [NexIUM] 40 mg PO DAILY 11/11/17 01/21/18 Apixaban [Eliquis] 2.5 mg PO DAILY 01/18/18 01/21/18 Finasteride [Proscar] 5 mg PO DAILY 01/18/18 01/21/18 Previous Rx's Medication Instructions Recorded Nitroglycerin Sl Tabs [Nitrostat] 0.4 mg SUBLINGUAL Q5M PRN #0 tab 01/13/16 Allergies Allergy/AdvReac Type Severity Reaction Status Date / Time codeine AdvReac Severe Nausea & Verified 07/03/18 06:31 Vomiting Neucrep-Chu-Ang Reductase AdvReac Severe Chest Pain Verified 07/03/18 06:31 Inhibitor Review of Systems ROS Other: All systems not noted in ROS Statement are negative. <Jhon Jeffery - Last Filed: 07/03/18 06:45> ROS Other: All systems not noted in ROS Statement are negative. <Jhon Cohen - Last Filed: 07/03/18 11:39> ROS Statement: Those systems with pertinent positive or pertinent negative responses have been documented in the HPI. Past Medical History Past Medical History: Atrial Fibrillation, Coronary Artery Disease (CAD), Cancer , Chest Pain / Angina, Diabetes Mellitus, GI Bleed, Hypertension, Osteoarthritis (OA) Additional Past Medical History / Comment(s): past gi bleed r/t coumadin, gout( once), skin cancer History of Any Multi-Drug Resistant Organisms: None Reported Past Surgical History: Appendectomy, Cardiac Valve Replacement, Coronary Bypass/ CABG, Heart Catheterization With Stent, Hernia Repair Additional Past Surgical History / Comment(s): cabg (5 vessle 18 years ago) and valve replacement 2 years ago, cataracts, laser sx rt eye(had some bleeding behind eye). Past Anesthesia/Blood Transfusion Reactions: No Reported Reaction Date of Last Stent Placement:: unkown Past Psychological History: No Psychological Hx Reported Smoking Status: Former smoker Past Alcohol Use History: None Reported Past Drug Use History: None Reported - Past Family History Mother Family Medical History: Dementia Father Additional Family Medical History / Comment(s): from train accident. many of pts aunts and uncles lived into their 100's from [place] <Jhon Jeffery - Last Filed: 07/03/18 06:45> General Exam Limitations: no limitations General appearance: alert, in no apparent distress Head exam: Present: atraumatic, normocephalic Eye exam: Present: normal appearance, PERRL, EOMI ENT exam: Present: mucous membranes dry Neck exam: Present: normal inspection, full ROM. Absent: tenderness, meningismus, lymphadenopathy Respiratory exam: Present: normal lung sounds bilaterally. Absent: respiratory distress, wheezes, rales Cardiovascular Exam: Present: normal rhythm, tachycardia GI/Abdominal exam: Present: soft. Absent: distended, tenderness Extremities exam: Present: normal inspection, normal capillary refill. Absent: pedal edema Back exam: Present: normal inspection, full ROM. Absent: tenderness Neurological exam: Present: alert, oriented X3, CN II-XII intact. Absent: motor sensory deficit Skin exam: Present: warm, dry, intact. Absent: cyanosis, diaphoretic <Jhon Jeffery - Last Filed: 07/03/18 06:45> Course <Jhon Jeffery - Last Filed: 07/03/18 06:45> <Jhon Cohen - Last Filed: 07/03/18 11:39> Vital Signs 07/03/18 07/03/18 07/03/18 06:19 07:10 08:09 Temperature 97.8 F 97.3 F L Pulse Rate 105 H 79 18 L Respiratory 20 18 18 Rate Blood Pressure 164/89 153/90 163/89 O2 Sat by Pulse 100 97 100 Oximetry - Reevaluation(s) Reevaluation #1: 07/03/18 0700 Patient's care is signed out at shift change to Dr. Cohen awaiting laboratory studies, x-rays and computed tomography scan. (Jhon Jeffery) EKG Findings - EKG Comments: EKG Findings:: EKG: Narrow complex regular tachycardia, likely sinus rhythm although EKG interpreted as accelerated junctional rhythm. There appears to be regular atrial activity best visualized in V1. LVH, no ST segment elevation. Ventricular rate of 106, WV interval less than 200. QRS duration 80, QTC 432 <Jhon Jeffery - Last Filed: 07/03/18 06:45> - EKG Results: EKG: interpreted by ERMChantel (Sinus rhythm of 106 QRS 80 QT since QTC 364/483 this was reviewed with Dr. Jeffery. Evidence of LVH abnormal QRS-T angle) <Jhon Cohen - Last Filed: 07/03/18 11:39> Medical Decision Making <Jhon Jeffery - Last Filed: 07/03/18 06:45> - Lab Data Result diagrams: 07/03/18 06:30 07/03/18 06:30 - Radiology Data Radiology results: report reviewed (EKG showed no definite acute findings.), image reviewed <Jhon Cohen - Last Filed: 07/03/18 11:39> - Medical Decision Making The patient was endorsed me by Dr. Jeffery pending labs and x-rays. Patient' s been awake and alert oriented 3 Shay Coma Scale of 15. He has been tachycardic higher than his usual rate. I did discuss the findings with him and his family members. Patient be admitted for evaluation of syncope orthostatic is considered. I did discuss case with Dr. Torres (Jhon Cohen) - Lab Data Lab Results 07/03/18 07/03/18 07/03/18 Range/Units 06:30 06:30 06:30 WBC 7.8 (3.8-10.6) k/uL RBC 3.90 L (4.30-5.90) m/uL Hgb 12.2 L (13.0-17.5) gm/dL Hct 37.2 L (39.0-53.0) % MCV 95.3 (80.0-100.0) fL MCH 31.2 (25.0-35.0) pg MCHC 32.7 (31.0-37.0) g/dL RDW 13.4 (11.5-15.5) % Plt Count 213 (150-450) k/uL Neutrophils % 61 % Lymphocytes % 26 % Monocytes % 7 % Eosinophils % 2 % Basophils % 1 % Neutrophils # 4.8 (1.3-7.7) k/uL Lymphocytes # 2.0 (1.0-4.8) k/uL Monocytes # 0.6 (0-1.0) k/uL Eosinophils # 0.2 (0-0.7) k/uL Basophils # 0.1 (0-0.2) k/uL PT (9.0-12.0) sec INR (<1.2) APTT (22.0-30.0) sec Sodium 138 (137-145) mmol/L Potassium 4.9 (3.5-5.1) mmol/L Chloride 101 (98-107) mmol/L Carbon Dioxide 23 (22-30) mmol/L Anion Gap 14 mmol/L BUN 22 H (9-20) mg/dL Creatinine 1.53 H (0.66-1.25) mg/dL Est GFR (CKD-EPI)AfAm 46 (>60 ml/min/1.73 sqM) Est GFR (CKD-EPI)NonAf 40 (>60 ml/min/1.73 sqM) Glucose 171 H (74-99) mg/dL POC Glucose (mg/dL) (75-99) mg/dL POC Glu Animal Trainer ID Calcium 7.7 L (8.4-10.2) mg/dL Magnesium 2.0 (1.6-2.3) mg/dL Total Bilirubin 0.7 (0.2-1.3) mg/dL AST 26 (17-59) U/L ALT 29 (21-72) U/L Alkaline Phosphatase 50 (38-126) U/L Total Creatine Kinase 115 (55-170) U/L CK-MB (CK-2) 1.9 (0.0-2.4) ng/mL CK-MB (CK-2) Rel Index 1.7 Troponin I 0.022 (0.000-0.034) ng/mL Total Protein 7.2 (6.3-8.2) g/dL Albumin 4.0 (3.5-5.0) g/dL 07/03/18 07/03/18 Range/Units 06:30 07:05 WBC (3.8-10.6) k/uL RBC (4.30-5.90) m/uL Hgb (13.0-17.5) gm/dL Hct (39.0-53.0) % MCV (80.0-100.0) fL MCH (25.0-35.0) pg MCHC (31.0-37.0) g/dL RDW (11.5-15.5) % Plt Count (150-450) k/uL Neutrophils % % Lymphocytes % % Monocytes % % Eosinophils % % Basophils % % Neutrophils # (1.3-7.7) k/uL Lymphocytes # (1.0-4.8) k/uL Monocytes # (0-1.0) k/uL Eosinophils # (0-0.7) k/uL Basophils # (0-0.2) k/uL PT 10.4 (9.0-12.0) sec INR 1.0 (<1.2) APTT 21.5 L (22.0-30.0) sec Sodium (137-145) mmol/L Potassium (3.5-5.1) mmol/L Chloride (98-107) mmol/L Carbon Dioxide (22-30) mmol/L Anion Gap mmol/L BUN (9-20) mg/dL Creatinine (0.66-1.25) mg/dL Est GFR (CKD-EPI)AfAm (>60 ml/min/1.73 sqM) Est GFR (CKD-EPI)NonAf (>60 ml/min/1.73 sqM) Glucose (74-99) mg/dL POC Glucose (mg/dL) 171 H (75-99) mg/dL POC Glu Animal Trainer ID Micheal Day Calcium (8.4-10.2) mg/dL Magnesium (1.6-2.3) mg/dL Total Bilirubin (0.2-1.3) mg/dL AST (17-59) U/L ALT (21-72) U/L Alkaline Phosphatase (38-126) U/L Total Creatine Kinase (55-170) U/L CK-MB (CK-2) (0.0-2.4) ng/mL CK-MB (CK-2) Rel Index Troponin I (0.000-0.034) ng/mL Total Protein (6.3-8.2) g/dL Albumin (3.5-5.0) g/dL Disposition <Jhon Jeffery - Last Filed: 07/03/18 06:45> <Jhon Cohen - Last Filed: 07/03/18 11:39> Clinical Impression: Syncope, Tachycardia, Fall, Renal insufficiency Disposition: ADMITTED IP TO THIS HOSP Condition: Stable Referrals: Daniele Banks MD [Primary Care Provider] - 1-2 days
[2018-07-03 07:03] LABS: Basophils # (A) 0.1 k/uL (0-0.2); Basophils % (A) 1 %; Eosinophils # (A) 0.2 k/uL (0-0.7); Eosinophils % (A) 2 %; HCT 37.2 % (39.0-53.0); HGB 12.2 gm/dL (13.0-17.5); Lymphocytes % (A) 26 %; MCH 31.2 pg (25.0-35.0); MCHC 32.7 g/dL (31.0-37.0); MCV 95.3 fL (80.0-100.0); Mean Platelet Volume 7.7; Monocytes # (A) 0.6 k/uL (0-1.0); Monocytes % (A) 7 %; Neutrophils # (A) 4.8 k/uL (1.3-7.7); Neutrophils % (A) 61 %; Platelet Count 213 k/uL (150-450); RDW 13.4 % (11.5-15.5); WBC 7.8 k/uL (3.8-10.6)
[2018-07-03 07:13] LABS: Calcium 7.7 mg/dL (8.4-10.2); Potassium 4.9 mmol/L (3.5-5.1); Total Bilirubin 0.7 mg/dL (0.2-1.3); Total Protein 7.2 g/dL (6.3-8.2)
[2018-07-03 07:16] LABS: Glucose,Whole Blood 171 mg/dL (75-99)
[2018-07-03 07:20] LABS: Prothrombin Time 10.4 sec (9.0-12.0)
[2018-07-03 07:22] LABS: Partial Thromboplastin Time 21.5 sec (22.0-30.0)
--- NOTE | 2018-07-03 07:37 | CT ---
EXAMINATION TYPE: CT brain amol olmos DATE OF EXAM: 07/03/2018 COMPARISON: NONE HISTORY: Syncope CT DLP: 1472.10 mGycm Automated exposure control for dose reduction was used. TECHNIQUE: CT scan of the head and cervical spine are performed without contrast. FINDINGS: BRAIN: There are generalized changes of sulcal prominence and ventriculomegaly, compatible with atrop hic change. There is diffuse periventricular white matter lucency, compatible with chronic white shaniqua er ischemic change. There is no acute focal lesion, mass effect or midline shift identified. I do not see evidence of intracranial blood. There is vascular calcification present. Visualized portions of the paranasal sinuses and mastoids are clear. The bony calvarium is intact. IMPRESSION: 1. NO ACUTE INTRACRANIAL ABNORMALITY. 2. DEGENERATIVE CHANGE. CERVICAL SPINE: Visualized portions of the lungs are clear. There is fairly marked coronary artery ca lcification. There is an ascending thoracic aortic aneurysm with maximal transverse dimension of 4.2 cm. The ascending thoracic aorta is also aneurysmal measuring 3.1 cm. Prevertebral soft tissues are o therwise normal. Vertebral artery height and alignment are maintained. Atlantoaxial relationships are normal. There is mild, diffuse degenerative disc disease most marked at C6-7 and C7-T1. There is mild uncovertebral j oint disease at these levels. There is facet arthropathy on the right at C2-3 and bilaterally at 34 n o definite protrusion is seen. No fracture is identified. IMPRESSION: 1. NO ACUTE OSSEOUS LESION. 2. DEGENERATIVE CHANGE. 3. THORACIC AORTIC ANEURYSM.
--- NOTE | 2018-07-03 07:38 | XR ---
EXAMINATION TYPE: XR chest 2V DATE OF EXAM: 07/03/2018 HISTORY: syncope. REFERENCE: Previous study dated 11/11/2017. FINDINGS: There has been a midline sternotomy. The heart is mildly enlarged. The lungs are clear. There is chronic blunting of the left CP angle whi ch may represent pleural thickening. I could not exclude a small left effusion. IMPRESSION: MILD CARDIOMEGALY.
--- NOTE | 2018-07-03 07:39 | XR ---
EXAMINATION TYPE: XR pelvis AP view , ONE VIEW DATE OF EXAM ORDERED: 07/03/2018 HISTORY: Pain. COMPARISON: None. FINDINGS: Mild degenerative changes in the hip joints. Osseous structures about the pelvis appear normal. No fr actures identified. There are degenerative changes in the lower lumbar spine. There is extensive vasc ular calcification. IMPRESSION: 1. NO ACUTE OSSEOUS LESION. 2. DEGENERATIVE CHANGE.
[2018-07-03 07:51] LABS: Creatine Kinase MB 1.9 ng/mL (0.0-2.4); Troponin I 0.022 ng/mL (0.000-0.034)
[2018-07-03 11:39] LABS: Appearance,Urine Clear (Clear); Bilirubin,Urine Negative (Negative); Blood,Urine Negative (Negative); Color,Urine Yellow; Glucose,Urine (UA) Negative (Negative); Ketones,Urine 1+ (Negative); Leukocyte Esterase,Urine Negative (Negative); Nitrite,Urine Negative (Negative); PH, Urine 7.5 (5.0-8.0); Protein,Urine Negative (Negative); Specific Gravity,Urine 1.012 (1.001-1.035); Urobilinogen,Urine <2.0 mg/dL (<2.0)
[2018-07-03] MEDS ORDERED: NALOXONE 0.4 MG/ML 1 ML VIAL IV PRN (11:40)
[2018-07-03] MEDS ORDERED: NITROGLYCERIN SL TABS 0.4 MG TAB SUBLINGUAL PRN (11:41)
--- NOTE | 2018-07-03 13:39 | P.HPIM ---
History of Present Illness H&P Date: 07/03/18 (Dr. Banks) Chief Complaint: To the emergency room by ambulance after syncopal episode at his home. History of physical dictated by Dr. joslyn M.D. Chief complaint: Bruit by ambulance to the emergency room from home, patient had fall with the loss of consciousness hit his head, found him on the floor , she called EMS officiated via 911. History of present illness Mr. Murphy who is 87 years old white male living with his . He wake up in the morning, to the heat up and close the window and in his way to the bathroom he felt funny and subsequently he fell down and hit his head however he could not express forward or backward. He does not know how many second or minutes he was unconscious and subsequently his came and saw him and called the EMS at that time he regained his consciousness and able to stand up. Past medical history: Coronary artery disease prior history of aortic valve stenosis underwent TA VR. Patient has history of resistant atrial fibrillation he is on anticoagulant and requests 2.5 mg twice a day and aspirin 81 mg daily. Patient seen in [address] JEFERSON Baird because of him his symptoms of fatigue and weakness and lack of energy the metoprolol has been decreased to 50 mg twice a day the heart rate is controlled better but his symptoms of fatigue and lack of energy the first 2 adjusting his dose. At that time he was wishes to go for cardioversion in the visit of 01/21/2018. Patient has history of diabetes mellitus as well he had a past history of family coronary artery disease. Cardiac cath was done on 02/09/2013 with the use of bare metal stent subsequently on 01/12/2016 he had a stent drug evaluated for the proximal portion of the graft in 1996 he had surgery on the coronary vessels with graft 2 vessel disease, on 10/06/2013 he had TA VR for the aortic valve. He had echo on 05/14/2015 with the aortic valve prosthesis with moderate regurgitation. And the ejection fraction was 55%. Patient has also echocardiogram on 05/03/2017 with the ejection fraction of 60% and [id number] aortic regurgitation and stable aortic valve Pavel prosthesis and mild elevation of the PA pressure on the 05/03/2017. He had by the EKG sinus bradycardia on 05/03/2015 and he had a stress test on . Last echo available was on 01/11/2016 with the conclusion that he had sinus rhythm and the he has TAPVR procedure he had also mitral regurgitation and tricuspid regurgitation right ventricular pressure less than 35 pulmonary valve appeared to be normal and pericardia is normal and the overall left ventricular systolic function was normal. Which was of intermediate of above-mentioned. Medication he is ALLERGIC to codeine. He is on aspirin 81 mg chewable once a day #2 echo is 2.5 mg tablet twice a day. #3 iron extended release 325 mg 1 a day next Lantus insulin Solus*and that he was on magnesium 250 mg 1 tablet a day and monitor per metoprolol 25 mg 2 tablet in a.m. 1 tablet in the afternoon and 2 tablets in the evening. He also on nitroglycerin sublingual 0.4 mg sublingual when necessary for chest pain. With the underlying history of aortic valve stenosis TA VR on 2013, paroxysmal atrial fibrillation diabetes mellitus and hypertension. Smoking history is of ex-smoker. Quit smoking 07/26/1973 Family history he has 2 sons and he lives with his . Review of system: Neuropsychiatry negative. No blurred vision and a sudden falling attack. Respiratory: No cough or expectoration but he has history of chronic smoker in the past. Cardiac he felt that his heart has been fixed 10 4/m and regular. He did not feel any chest pain but he suddenly fall without aura. GI no nausea or vomiting or diarrhea or hematochezia or hematemesis or melena. no dysuria or hematuria no hearing continent with the events. Endocrine: The patient is diabetic type II on insulin. Hemopoietic: No history of cancer or lymphadenopathy or blood disease. Neurology: No history of strokes in the past. And patient even very well speech and able to recall recent and remote history however he could not discuss clearly how he fell down. On the physical exam: Patient blood pressure drop from 139-103 systolic with the probably associated with orthostatic hypotension at the time when I saw the patient in the ER was not done yet. The head was normocephalic and atraumatic they did a computed tomography scan was negative. Oropharynx natural teas uvula midline no facial symmetry. Ears and hearing he has bilateral hearing aids with neurosensory loss. Nose no discharge. Neck was supple no JVD no thyromegaly no lymphadenopathy trachea midline. Chest: The lung is created in the upper lung garza however there is inspiratory dry crackles on the lower basis of the lung, chest x-ray was negative with cardiomegaly, however pulmonary fibrosis is in question. Abdomen: Soft positive bowel sounds no organ enlargement and he has scar from appendectomy and his young age. Genitalia: Circumcised penis normal testicle no apparent hernia in the groin. Extremities: No edema positive pulses bilateral and symmetrical, nail onychomycosis with subungual of the toenail from 1-5 right and left foot Neurologically stable no 4 extremities. No tremor, no cranial nerve deficit. Syncopal release episode. #2 orthostatic hypotension #3 dehydration #4 history of atrial fibrillation. #5 diabetes mellitus type 2 insulin-dependent. #6 dyslipidemia. #7 status post TA VR, colorectal coronary artery bypass graft, bioprosthetic aortic valve, atrial fibrillation on anticoagulant. #8 chronic kidney disease stage III could be related to mild dehydration we'll obtain the lab tomorrow. Patient admitted to observation, requesting in the orthostatic every shift, IV fluid adjusting his medication. Dr. Banks will follow the patient in a.m. Past Medical History Past Medical History: Atrial Fibrillation, Coronary Artery Disease (CAD), Cancer , Chest Pain / Angina, Diabetes Mellitus, GI Bleed, Hypertension, Osteoarthritis (OA) Additional Past Medical History / Comment(s): past gi bleed r/t coumadin, gout( once), skin cancer History of Any Multi-Drug Resistant Organisms: None Reported Past Surgical History: Appendectomy, Cardiac Valve Replacement, Coronary Bypass/ CABG, Heart Catheterization With Stent, Hernia Repair Additional Past Surgical History / Comment(s): cabg (5 vessle 18 years ago) and valve replacement 2 years ago, cataracts, laser sx rt eye(had some bleeding behind eye). Past Anesthesia/Blood Transfusion Reactions: No Reported Reaction Date of Last Stent Placement:: unkown Past Psychological History: No Psychological Hx Reported Smoking Status: Former smoker Past Alcohol Use History: None Reported Past Drug Use History: None Reported - Past Family History Mother Family Medical History: Dementia Father Additional Family Medical History / Comment(s): from train accident. many of pts aunts and uncles lived into their 100's from mi's Medications and Allergies Home Medications Medication Instructions Recorded Confirmed Type Insulin Glargine,Hum.rec.anlog 35 unit SQ HS 07/25/15 07/03/18 History [Lantus Solostar] Nitroglycerin Sl Tabs [Nitrostat] 0.4 mg SUBLINGUAL Q5M PRN #0 tab 01/13/1604/12 Rx Magnesium Oxide [Mag-Ox] 250 mg PO HS 06/24/16 07/03/18 History Ferrous Sulfate [Feosol] 325 mg PO HS 07/22/16 07/03/18 History Tamsulosin HCl [Flomax] 0.4 mg PO HS 07/22/16 07/03/18 History Apixaban [Eliquis] 2.5 mg PO BID 01/18/18 07/03/18 History Finasteride [Proscar] 5 mg PO DAILY 01/18/18 07/03/18 History Metoprolol Tartrate 25 mg PO DAILY@1200 07/03/18 07/03/18 History Metoprolol Tartrate [Lopressor] 50 mg PO BID 07/03/18 07/03/18 History Pantoprazole Sodium [Protonix] 40 mg PO DAILY 07/03/18 07/03/18 History Allergies Allergy/AdvReac Type Severity Reaction Status Date / Time codeine AdvReac Severe Nausea & Verified 07/03/18 11:51 Vomiting Zujcuro-Toi-Txv Reductase AdvReac Severe Chest Pain Verified 07/03/18 11:51 Inhibitor Physical Exam Vitals: Vital Signs Temp Pulse Resp BP Pulse Ox 07/03/18 12:06 97.8 F 104 H 18 103/62 100 07/03/18 08:09 97.3 F L 18 L 18 163/89 100 07/03/18 07:10 79 18 153/90 97 07/03/18 06:19 97.8 F 105 H 20 164/89 100 Intake and Output 07/02/18 07/03/18 07/03/18 22:59 06:59 14:59 Other: Weight 82.554 kg Results CBC & Chem 7: 07/03/18 06:30 07/03/18 06:30 Labs: Abnormal Lab Results - Last 24 Hours (Table) 07/03/18 07/03/18 07/03/18 Range/Units 06:30 06:30 06:30 RBC 3.90 L (4.30-5.90) m/uL Hgb 12.2 L (13.0-17.5) gm/dL Hct 37.2 L (39.0-53.0) % APTT 21.5 L (22.0-30.0) sec BUN 22 H (9-20) mg/dL Creatinine 1.53 H (0.66-1.25) mg/dL Glucose 171 H (74-99) mg/dL POC Glucose (mg/dL) (75-99) mg/dL Calcium 7.7 L (8.4-10.2) mg/dL Urine Ketones (Negative) 07/03/18 07/03/18 Range/Units 07:05 11:30 RBC (4.30-5.90) m/uL Hgb (13.0-17.5) gm/dL Hct (39.0-53.0) % APTT (22.0-30.0) sec BUN (9-20) mg/dL Creatinine (0.66-1.25) mg/dL Glucose (74-99) mg/dL POC Glucose (mg/dL) 171 H (75-99) mg/dL Calcium (8.4-10.2) mg/dL Urine Ketones 1+ H (Negative)
[2018-07-03] MEDS: INSULIN ASPART 100 UNIT/ML 1 ML 10 ML VIAL SQ SCH ×3 (13:45→21:47)
[2018-07-03 13:49] LABS: Glucose,Whole Blood 297 mg/dL (75-99)
[2018-07-03] MEDS ORDERED: INSULIN ASPART 100 UNIT/ML 1 ML 10 ML VIAL SQ ONE (13:52)
[2018-07-03] MEDS: SODIUM CHLORIDE 0.9% 1,000 ML IV SCH (13:58)
[2018-07-03 14:28] VITALS: BMI 27.4
[2018-07-03 17:23] LABS: Glucose,Whole Blood 176 mg/dL (75-99)
[2018-07-03] MEDS: TAMSULOSIN 0.4 MG CAP.ER.24H PO SCH (20:27)
[2018-07-03] MEDS: METOPROLOL TARTRATE 25 MG TAB PO SCH (20:28)
[2018-07-03 20:37] LABS: Glucose,Whole Blood 198 mg/dL (75-99)
[2018-07-03] MEDS: FERROUS SULFATE 325 MG TAB PO SCH (21:46)
[2018-07-03] MEDS: MAGNESIUM OXIDE 400 MG TAB PO SCH (21:46)
[2018-07-03] MEDS: INSULIN DETEMIR 100 UNIT/ML 10 ML VIAL SQ SCH (21:47)
[2018-07-04] MEDS: SODIUM CHLORIDE 0.9% 1,000 ML IV SCH ×2 (00:03→12:57)
[2018-07-04 06:58] LABS: Glucose,Whole Blood 104 mg/dL (75-99)
[2018-07-04] MEDS ORDERED: PANTOPRAZOLE 40 MG TABLET PO SCH (07:30)
[2018-07-04] MEDS: INSULIN ASPART 100 UNIT/ML 1 ML 10 ML VIAL SQ SCH ×4 (07:54→21:20)
[2018-07-04] MEDS: PANTOPRAZOLE 40 MG TABLET PO SCH (08:03)
[2018-07-04] MEDS: METOPROLOL TARTRATE 25 MG TAB PO SCH ×2 (08:03→21:21)
[2018-07-04] MEDS: APIXABAN 2.5 MG TABLET PO SCH (08:03)
[2018-07-04] MEDS: ASPIRIN 81 MG PO SCH ×2 (08:03→08:08)
[2018-07-04] MEDS: FINASTERIDE 5 MG TAB PO SCH (08:03)
[2018-07-04 10:00] LABS: Basophils % (A) 0 %; Eosinophils # (A) 0.1 k/uL (0-0.7); Eosinophils % (A) 2 %; HCT 33.6 % (39.0-53.0); HGB 11.1 gm/dL (13.0-17.5); Lymphocytes % (A) 15 %; MCH 31.5 pg (25.0-35.0); MCHC 32.9 g/dL (31.0-37.0); MCV 95.6 fL (80.0-100.0); Mean Platelet Volume 7.7; Monocytes # (A) 0.4 k/uL (0-1.0); Monocytes % (A) 6 %; Neutrophils # (A) 5.1 k/uL (1.3-7.7); Neutrophils % (A) 75 %; Platelet Count 192 k/uL (150-450); RBC 3.52 m/uL (4.30-5.90); RDW 13.4 % (11.5-15.5); WBC 6.8 k/uL (3.8-10.6)
[2018-07-04 10:13] LABS: Hemoglobin A1C 7.7 % (4.0-6.0)
[2018-07-04 10:29] LABS: Calcium 8.3 mg/dL (8.4-10.2); Magnesium 1.9 mg/dL (1.6-2.3); Potassium 4.6 mmol/L (3.5-5.1)
[2018-07-04 11:43] LABS: Glucose,Whole Blood 195 mg/dL (75-99)
[2018-07-04] MEDS ORDERED: METOPROLOL TARTRATE 25 MG TAB PO SCH ×2 (12:00)
--- NOTE | 2018-07-04 17:09 | CONS ---
CONSULTATION Mr. Murphy is an 87-year-old male who is followed by Dr. Meeta Baird, has a history of coronary artery disease, status post coronary artery bypass grafting, history of TAVR done in [place], who presented to the emergency room with a syncopal episode. He woke up, went to close the window and he passed out. The duration of the syncope is unclear. He has some soreness in the chest, but according to him he has a lot of arthritis. His breathing has been stable. He denies any dizziness or palpitation. He denies any prior syncope. He has no significant peripheral edema, no PND, no orthopnea. He underwent coronary artery bypass grafting over 20 years ago and subsequently, about 5 years ago, underwent TAVR. He has a prior history of percutaneous revascularization, most recently performed in December of 2015 to the saphenous vein graft to the obtuse marginal branch. At the time of surgery he had GARIBAY to LAD, saphenous vein graft to first and second obtuse marginal branches, and saphenous vein grafts to the PDA and PLV. The TAVR was done transapically. His left ventricular systolic function in the past has been preserved. Patient had an episode of atrial fibrillation and underwent attempted angioplasty by Dr. Meeta Baird in December of this year that was unsuccessful in restoring sinus mechanism. His coronary risk factors are positive for hypertension. He is nonsmoker. He is not diabetic. MEDICATIONS: His medications include: 1. Eliquis 2.5 mg twice a day. 2. Iron. 3. Insulin. 4. Metoprolol tartrate 50 mg twice a day. 5. Protonix. 6. Flomax. REVIEW OF SYSTEMS: RESPIRATORY SYSTEM: He has stable dyspnea. No wheezing. No cough. GI SYSTEM: No recent GI bleeding. No peptic ulcer disease. SYSTEM: No dysuria or hematuria. NERVOUS SYSTEM: No history of stroke or seizure. PHYSICAL EXAMINATION: This patient is an 87-year-old male, alert, in no apparent distress. Blood pressure 135/70 supine, dropping when standing to 105/60 with a heart rate in the 90s. HEAD: Normocephalic. Eyes: Sclerae anicteric. NECK: Good carotid upstroke. No bruit. LUNGS: Clear to auscultation. HEART: Irregularly irregular. S1, S2. No S3, with systolic murmur. No diastolic murmur. No rub. ABDOMEN: Soft and nontender. Positive bowel sounds. No organomegaly. EXTREMITIES: No edema. Intact distal pulses. LAB DATA: BUN and creatinine are 20 and 1.54. Hemoglobin 11.1, potassium 4.6. EKG appears to show atrial tachycardia with 2:[address]-T wave changes. His chest x-ray shows no acute infiltrate. IMPRESSION: 1. Syncopal episode; could be related to orthostatic hypotension. No clear evidence to suggest malignant arrhythmia. 2. Status post coronary artery bypass grafting with no evidence to suggest recurrent angina pectoris. 3. Status post transcatheter aortic valve replacement. 4. Atrial fibrillation. Patient appears to be in atrial tachycardia with 2:1 conduction at this point. 5. Hypertension. 6. Diabetes. 7. Hyperlipidemia. RECOMMENDATION: From the cardiac standpoint, I will review the results of his echocardiogram. Will continue the rest of his medical regimen, follow his rhythm on the monitor and, depending on his progress, further recommendations will be made. Thank you for this consult. Will follow with you. MMODL / IJN: [id number] /
[2018-07-04 17:18] LABS: Glucose,Whole Blood 210 mg/dL (75-99)
[2018-07-04 20:13] LABS: Glucose,Whole Blood 178 mg/dL (75-99)
[2018-07-04] MEDS: INSULIN DETEMIR 100 UNIT/ML 10 ML VIAL SQ SCH (21:20)
[2018-07-04] MEDS: TAMSULOSIN 0.4 MG CAP.ER.24H PO SCH (21:21)
[2018-07-04] MEDS: FERROUS SULFATE 325 MG TAB PO SCH (21:21)
[2018-07-04] MEDS: MAGNESIUM OXIDE 400 MG TAB PO SCH (21:21)
--- NOTE | 2018-07-04 23:36 | PN ---
PROGRESS NOTE ATTENDING PHYSICIAN: Dr. Nina Banks. CHIEF COMPLAINT: Re-evaluation. HISTORY OF PRESENT ILLNESS: This 87-year-old gentleman was admitted to the hospital yesterday. He normally keeps his windows open at night. He got up in the morning because it was cold. He got out of bed and less than 5 steps away from the window which he closed, he turned around to go to the bathroom and maybe another 7 or 8 steps and as he reached there he passed out. He hit his head against the wall with significant dent in the wall with breaking the plaster on the wall. The patient thinks he might have been out for about 10 minutes. He says he came around and was pretty much alert right away. The spouse was called, told him that she was going to call EMS and he said no, he will be fine. However, EMS did bring him up to the hospital. He is mildly tachycardic in the emergency room. Otherwise no other major findings. The subsequent evaluation did reveal the patient had some orthostatic hypotension. The patient has been drinking adequate fluids. There is no particular reason for him to be dehydrated. He did have a relatively busy the day prior. He denied any bleeding. The patient has known history of atrial fibrillation, previous TAVR, coronary bypass and no symptoms of angina. The patient has had a previous episode of GI bleeding from gastric bleeding. No evidence at present. The patient has a history of diabetes mellitus, adequately controlled sugars. The patient is feeling better today. He has been hydrated. I am concerned the patient may have a sick sinus syndrome type of underlying process from which he has had this episode of syncope. He does take medication which includes Flomax. REVIEW OF SYSTEMS: Neuro: Denies any headaches, dizziness. Psych: No anxiety. Cardiac: No chest pain, angina or palpitations. Respiratory: No shortness of breath, cough, hemoptysis. GI no nausea, vomiting, abdominal pain, diarrhea. No bowel movement. no symptoms dysuria or hematuria. EXTREMITIES: Denies pain, edema. CONSTITUTIONAL: No fever or chills. HEMATOLOGICAL: No suggestion of any bleeding. No melena. PHYSICAL EXAMINATION: Pleasant gentleman at present in no distress. Vital signs revealed temperature 98.1, pulse 101, respirations 18, blood pressure 146/77, pulse ox 96% on room air. HEENT: Normocephalic. Neck no JVD. No carotid bruits. CHEST: Clear to auscultation with a few dry crackles in the left base cardiac normal S1, S2 with no gallops. Systolic murmur 2/6 left sternal border. ABDOMEN: Soft. Bowel sounds are present. Extremities reveal no edema. Good pulses both upper lower extremities. NEUROLOGIC: Awake, alert, oriented x3 with well-coordinated movements both upper and lower extremities. Equal strength. LABORATORY ASSESSMENT: CBC which reveals a hemoglobin of 11.1, down from 12.2 yesterday. BUN about the same as yesterday was 22 yesterday and is 20 today. Creatinine 1.54, it was 1.5 cm today. ASSESSMENT: 1. Syncope, etiology possible orthostatic hypotension. However, sick sinus syndrome with related bradycardia not ruled out. 2. Coronary artery disease. 3. Diabetes mellitus. PLAN: Continue with hydration, have echocardiogram and consultation with Cardiology. The patient's condition is discussed with the patient. Prognosis is guarded. If he remains stable, may be discharged home tomorrow. FLOR / LINDSAYN: [id number] /
[2018-07-05 00:02] VITALS: RESP 16
[2018-07-05] MEDS: SODIUM CHLORIDE 0.9% 1,000 ML IV SCH (01:43)
--- NOTE | 2018-07-05 06:37 | ECHOF ---
Referral Reason:syncope MEASUREMENTS -------- HEIGHT: 172.7 cm WEIGHT: 81.6 kg BP: 146/77 RVIDd: 2.6 cm (< 3.3) IVSd: 1.4 cm (0.6 - 1.1) LVIDd: 5.3 cm (3.9 - 5.3) LVPWd: 1.4 cm (0.6 - 1.1) IVSs: 1.7 cm LVIDs: 3.7 cm LVPWs: 1.7 cm LAESV Index (A-L): 29.04 ml/m Ao Diam: 3.2 cm (2.0 - 3.7) LA Diam: 5.3 cm (2.7 - 3.8) MV E Kvng: 1.32 m/s MV DecT: 179 ms MV A Kvng: 0.85 m/s MV E/A Ratio: 1.54 AV maxP.18 mmHg AV meanP.19 mmHg RAP: 5.00 mmHg RVSP: 21.35 mmHg MV EF SLOPE: 55.99 mm/s (70 - 150) MV EXCURSION: 1.38 cm (> 18.000) FINDINGS -------- Undetermined rhythm. This was a technically adequate study. The left ventricular size is normal. There is moderate concentric left ventricular hypertrophy. O verall left ventricular systolic function is normal with, an EF between 55 - 60 %. The right ventricle is normal in size and function. LA is midly dilated 29-33ml/m2. The right atrial size is normal. There is mild aortic regurgitation. Normally functioning bioprosthetic valve. Moderate mitral annular calcification present. Mild mitral regurgitation is present. Mild tricuspid regurgitation present. Right ventricular systolic pressure is normal at < 35 mmHg. The right ventricular systolic pressure, as measured by Doppler, is 21.35mmHg. The pulmonic valve was not well visualized. Trace/mild (physiologic) pulmonic regurgitation. The aortic root size is normal. IVC Not well visulized. There is no pericardial effusion. CONCLUSIONS -------- 1. Undetermined rhythm. 2. This was a technically adequate study. 3. The left ventricular size is normal. 4. There is moderate concentric left ventricular hypertrophy. 5. Overall left ventricular systolic function is normal with, an EF between 55 - 60 %. 6. LA is midly dilated 29-33ml/m2. 7. Normally functioning bioprosthetic valve. 8. Moderate mitral annular calcification present. 9. Mild mitral regurgitation is present. 10. Right ventricular systolic pressure is normal at < 35 mmHg. 11. Trace/mild (physiologic) pulmonic regurgitation. 12. The aortic root size is normal. 13. IVC Not well visulized. 14. There is no pericardial effusion. ASSISTANT REFINERY OPERATOR: You Johnston RDCS
[2018-07-05 06:56] LABS: Glucose,Whole Blood 80 mg/dL (75-99)
[2018-07-05 08:04] VITALS: BP 92/56; PULSE 84; TEMP 97.6
[2018-07-05] MEDS: METOPROLOL TARTRATE 25 MG TAB PO SCH (08:16)
[2018-07-05] MEDS: INSULIN ASPART 100 UNIT/ML 1 ML 10 ML VIAL SQ SCH (08:17)
[2018-07-05] MEDS: ASPIRIN 81 MG PO SCH (08:22)
[2018-07-05] MEDS: APIXABAN 2.5 MG TABLET PO SCH (08:22)
[2018-07-05] MEDS: FINASTERIDE 5 MG TAB PO SCH (08:22)
[2018-07-05] MEDS: PANTOPRAZOLE 40 MG TABLET PO SCH (08:22)
[2018-07-05 10:04] LABS: Calcium 8.5 mg/dL (8.4-10.2); Potassium 4.8 mmol/L (3.5-5.1)
[2018-07-05 11:42] LABS: Glucose,Whole Blood 123 mg/dL (75-99)
--- NOTE | 2018-07-05 13:26 | P.PN ---
Subjective This is a pleasant 87-year-old male past medical history significant for coronary artery disease status post bypass grafting as well as a TAVR procedure performed in [place], chronic atrial fibrillation on long-term anticoagulation, hypertension, diabetes and dyslipidemia. He follows with Dr. JEFERSON Baird in the office. Prior to admission he suffered a syncopal episode. He is seen and examined sitting up in his chair with family at the bedside. He denies any symptoms of chest discomfort, shortness of breath, dizziness or palpitations. He states he has been up moving around and has felt no dizziness. Echocardiogram has been obtained and reveals preserved left ventricular systolic function with ejection fraction 55-60%, mildly dilated left atrium, moderate concentric left ventricular hypertrophy, mild MR and normally functioning bioprosthetic aortic valve. Blood pressure 92/56 heart rate 84 afebrile maintaining oxygen saturation on room air. Laboratory data reviewed, sodium 137, potassium 4.8, creatinine 1.37. No evidence of an acute arrhythmia on telemetry tracings. GENERAL: Well-appearing, well-nourished and in no acute distress. NECK: Supple without JVD or thyromegaly. LUNGS: Breath sounds clear to auscultation bilaterally. Respiration equal and unlabored. No wheezes, rales or rhonchi. HEART: Irregular rate and rhythm with systolic ejection murmur at the base, no rubs or gallops. S1 and S2 heard. EXTREMITIES: Normal range of motion, no edema. No clubbing or cyanosis. Peripheral pulses intact. ASSESSMENT Syncopal episode, possibly related to orthostatic hypotension with no evidence of malignant arrhythmia. History of coronary artery disease status post bypass grafting with no angina Chronic persistent atrial fibrillation on long-term anticoagulation Hypertension Dyslipidemia Diabetes mellitus Status post transcatheter aortic valve replacement PLAN Stable from a cardiac perspective. No evidence of acute kaveh arrhythmia. Follow-up with Dr. Baird in 2-3 weeks. Nurse Practitioner note has been reviewed, I agree with a documented findings and plan of care. Patient was seen and examined. Objective - Vital Signs Vital signs: Vital Signs Temp 97.6 F 07/05/18 08:00 Pulse 84 07/05/18 08:00 Resp 16 07/05/18 08:00 BP 92/56 07/05/18 08:00 Pulse Ox 99 07/04/18 14:40 Intake & Output 07/04/18 07/05/18 07/05/18 18:59 06:59 18:59 Intake Total 600 600 Output Total 600 Balance 0 600 Weight 82 kg Intake: IV 600 Sodium Chloride 0.9% 1, 600 000 ml @ 80 mls/hr IV . [id number] [facility] Rx#:[id number] Intake, IV Titration 400 Amount Sodium Chloride 0.9% 1, 400 000 ml @ 80 mls/hr IV . [id number] [facility] Rx#:[id number] Oral 200 Output: Urine 600 Other: Voiding Method Urinal Urinal - Labs CBC & Chem 7: 07/04/18 08:17 07/05/18 09:00 Labs: Abnormal Lab Results - Last 24 Hours (Table) 07/04/18 07/04/18 07/05/18 Range/Units 17:07 20:02 09:00 Creatinine 1.37 H (0.66-1.25) mg/dL Glucose 122 H (74-99) mg/dL POC Glucose (mg/dL) 210 H 178 H (75-99) mg/dL 07/05/18 Range/Units 11:40 Creatinine (0.66-1.25) mg/dL Glucose (74-99) mg/dL POC Glucose (mg/dL) 123 H (75-99) mg/dL
== END 2018-07-05 11:59 | disposition home or self-care (01) ==
LOC: EC 06:17 → 4SSUR 11:40
PROVIDERS: ADMIT Internal Medicine; ATTEND Internal Medicine
DX: R55 Syncope and collapse (principal); I95.1 Orthostatic hypotension; E86.0 Dehydration; N18.3 Chronic kidney disease, stage 3 (moderate); E11.22 Type 2 diabetes mellitus with diabetic chronic kidney disease; E78.5 Hyperlipidemia, unspecified; M19.90 Unspecified osteoarthritis, unspecified site; I25.10 Atherosclerotic heart disease of native coronary artery without angina pectoris; I12.9 Hypertensive chronic kidney disease with stage 1 through stage 4 chronic kidney disease, or unspecified chronic kidney disease; I48.2 Chronic atrial fibrillation; Z87.19 Personal history of other diseases of the digestive system; Z95.1 Presence of aortocoronary bypass graft; Z95.5 Presence of coronary angioplasty implant and graft; Z85.828 Personal history of other malignant neoplasm of skin; Z95.2 Presence of prosthetic heart valve; Z87.891 Personal history of nicotine dependence; Z82.49 Family history of ischemic heart disease and other diseases of the circulatory system; Z81.8 Family history of other mental and behavioral disorders; Z88.5 Allergy status to narcotic agent; Z88.8 Allergy status to other drugs, medicaments and biological substances; Z79.4 Long term (current) use of insulin; Z79.01 Long term (current) use of anticoagulants; Z79.899 Other long term (current) drug therapy; Z79.82 Long term (current) use of aspirin; W19.XXXA Unspecified fall, initial encounter; Y92.008 Other place in unspecified non-institutional (private) residence as the place of occurrence of the external cause; W22.01XA Walked into wall, initial encounter
CPT/HCPCS: 96361; 96374; 99285; 36415; 93005; 93306; 80053; 80048 ×2; 82550; 82553; 83735 ×2; 84484; 85025 ×2; 85610; 85730; 81003; 82306; 83036; 72170; 71046; 72125; 70450; G0378 ×3; S0138 ×2; J2405